=== PATIENT | male | born 1980 | race Caucasian/White ===

== ENCOUNTER 2025-02-20 15:26 | Inpatient (IN) | payer BC ==
[~2025-02-20] VITALS: Ht 170.2 cm; Wt 74.8 kg
[2025-02-20 16:20] LABS: BASOPHILS % 0.1 % (0.0-2.0); EOSINOPHILS % 0.6 % (0.0-5.0); HEMATOCRIT. 51.3 % (42.0-52.0); HEMOGLOBIN. 17.8 g/dL (14.0-18.0); LYMPHOCYTES % 21.4 % (20.0-50.0); MEAN PLATELET VOLUME 8.3 fl (7.4-10.4); MONOCYTES % 3.4 % (2.0-8.0); NEUTROPHILS % 74.5 % (40.0-76.0); PLATELET 265 x1000/uL (130-400); RED BLOOD CELL COUNT 5.45 mill/uL (4.7-6.1); RED CELL DISTRIBUTION WIDTH 13.3 % (11.6-14.6)
[2025-02-20 16:22] LABS: CREATININE 0.9 mg/dL (0.6-1.3)
[2025-02-20 16:23] LABS: UREA NITROGEN BLOOD 20 mg/dL (9-23)
[2025-02-20 16:24] LABS: ASPARTATE AMINOTRANSFERASE 29 IU/L (<34)
[2025-02-20 16:25] LABS: BILIRUBIN DIRECT 0.2 mg/dL (<=3.0); BILIRUBIN TOTAL 0.6 mg/dL (0.1-1.0); PROTEIN TOTAL 7.2 g/dL (6.0-8.3)
[2025-02-20 16:29] LABS: INR 1.0
[2025-02-20] MEDS ORDERED: SODIUM CHLORIDE 0.9% 1,000 ML IV ONE (16:45)
[2025-02-20 16:49] LABS: ETHANOL BLOOD 613 mg/dL (<10)
[2025-02-20] MEDS ORDERED: IPRATROPIUM/ALBUTEROL 0.5-3(2.5)MG/3ML NEB HHN PRN (19:30)
[2025-02-20] MEDS ORDERED: ONDANSETRON HCL 4MG/2ML INJ IV PRN (19:30)
[2025-02-20] MEDS ORDERED: DOCUSATE SODIUM 100MG CAPSULE PO PRN (19:30)
[2025-02-20] MEDS ORDERED: ACETAMINOPHEN 325MG TABLET PO PRN (19:30)
[2025-02-20] MEDS ORDERED: GUAIFENESIN 200MG/10ML SUGAR FREE UDC PO PRN (19:30)
[2025-02-20 20:42] LABS: CREATININE 0.9 mg/dL (0.6-1.3); UREA NITROGEN BLOOD 21 mg/dL (9-23)
[2025-02-20] MEDS: ATORVASTATIN CALCIUM 40MG TABLET PO SCH (21:00)
[2025-02-20] MEDS: FOLIC ACID 1 MG, THIAMINE HCL 100 MG, MVI, ADULT NO.1 10 ML in DEXTROSE 5% WATER 988.8 ML IV SCH (21:26)
[2025-02-20 21:44] VITALS: BP 126/79; PULSE 104; RESP 18; TEMP 37.3; O2SAT 97
[2025-02-20] MEDS: CHLORDIAZEPOXIDE 25MG CAPSULE PO SCH (22:00)
[2025-02-21] VITALS: BP 145/83; PULSE 102; RESP 18; TEMP 36.8; O2SAT 98
[2025-02-21 00:38] LABS: CREATININE 0.8 mg/dL (0.6-1.3); UREA NITROGEN BLOOD 20 mg/dL (9-23)
[2025-02-21 00:56] LABS: TROPONIN I HIGH SENSITIVITY 26 ng/L (3.0-53)
[2025-02-21 04:00] VITALS: BP 137/96; PULSE 99; RESP 16; TEMP 36.8; O2SAT 96
[2025-02-21 06:27] LABS: BASOPHILS % 0.2 % (0.0-2.0); EOSINOPHILS % 0.8 % (0.0-5.0); HEMATOCRIT. 45.6 % (42.0-52.0); HEMOGLOBIN. 15.7 g/dL (14.0-18.0); LYMPHOCYTES % 19.5 % (20.0-50.0); MEAN PLATELET VOLUME 8.2 fl (7.4-10.4); MONOCYTES % 11.5 % (2.0-8.0); NEUTROPHILS % 68.0 % (40.0-76.0); PLATELET 206 x1000/uL (130-400); RED BLOOD CELL COUNT 4.89 mill/uL (4.7-6.1); RED CELL DISTRIBUTION WIDTH 13.7 % (11.6-14.6)
[2025-02-21] MEDS: SODIUM CHLORIDE 0.9% 1,000 ML IV ONE (06:47)
[2025-02-21 07:00] LABS: CREATININE 0.8 mg/dL (0.6-1.3)
[2025-02-21 07:01] LABS: TRIGLYCERIDE 273 mg/dL (0-150); UREA NITROGEN BLOOD 15 mg/dL (9-23)
[2025-02-21 07:02] LABS: LDL CHOLESTEROL 132 mg/dL (5-100); TROPONIN I HIGH SENSITIVITY 29 ng/L (3.0-53)
[2025-02-21 07:05] LABS: T4 FREE 1.01 ng/dL (0.89-1.76)
[2025-02-21 08:00] VITALS: BP 163/97; PULSE 100; RESP 18; TEMP 36.6; O2SAT 97
[2025-02-21] MEDS ORDERED: DEXTROSE 5% WATER 1,000 ML IV ONE (08:00)
[2025-02-21] MEDS ORDERED: SODIUM CHLORIDE 0.9% 1,000 ML IV SCH (09:30)
[2025-02-21] MEDS: FOLIC ACID 1MG TABLET PO SCH (10:41)
[2025-02-21] MEDS: THIAMINE HCL 100MG TABLET PO SCH (10:41)
[2025-02-21] MEDS: PANTOPRAZOLE SODIUM 40 MG/VIAL IV SCH (10:41)
[2025-02-21 10:47] LABS: PHOSPHORUS 2.6 mg/dL (2.5-4.9)
[2025-02-21] MEDS: CLONIDINE 0.1MG TABLET PO PRN (10:56)
[2025-02-21 12:00] VITALS: BP 158/95; PULSE 90; RESP 18; TEMP 36.4; O2SAT 97
[2025-02-21 14:59] LABS: BG BASE EXCESS -5.0 mmol/L (-2.0-3.0); BG CARBOXYHEMOGLOBIN 0.7 % (0.5-1.5); BG DEOXYHEMOGLOBIN 4.7 % (0.0-5.0); BG FRACTION INSPIRED OXYGEN 21; BG HCO3 ACT 19.3 mmol/L (21.0-28.0); BG METHEMOGLOBIN 0.3 % (0.5-1.5); BG OXYGEN SATURATION 95.3 % (94.0-98.0); BG OXYHEMOGLOBIN 94.3 % (94.0-98.0); BG PCO2 34.3 mmHg (35.0-48.0); BG PH 7.367 (7.350-7.450); BG PO2 82.2 mmHg (83.0-108.0); BG TOTAL HEMOGLOBIN 17.6 g/dL (13.5-17.5); BG VENT MODE ROOM AIR
[2025-02-21] MEDS ORDERED: THIA100T72 PO (15:21)
[2025-02-21] MEDS ORDERED: PANT40TA51 PO (15:21)
[2025-02-21] MEDS ORDERED: CHLO25CA10 PO (15:21)
[2025-02-21] MEDS ORDERED: FOLI-43 PO (15:21)
[2025-02-21] MEDS ORDERED: MULT-1116 MT (15:21)
[2025-02-21 15:57] VITALS: BP 153/108; PULSE 98; TEMP 97.5; O2SAT 97
== END 2025-02-21 16:33 | disposition home or self-care (01) | DRG 640 ==
LOC: EDBD 15:26 → ER 15:26 → EDBEDREQSVC 19:29 → EDBEDREQ 19:29 → EDBEDREQTM 19:29 → ENRESERV 20:14 → 5WST 20:52
PROVIDERS: ADMIT Hospitalist; ATTEND Hospitalist
DX: E87.0 Hyperosmolality and hypernatremia (principal); G92.8 Other toxic encephalopathy; E87.20 Acidosis, unspecified; F10.129 Alcohol abuse with intoxication, unspecified; E78.5 Hyperlipidemia, unspecified; E83.51 Hypocalcemia; Y90.9 Presence of alcohol in blood, level not specified; I10 Essential (primary) hypertension; R56.9 Unspecified convulsions; F41.9 Anxiety disorder, unspecified
CPT/HCPCS: 36415; 36600; 71045; 80048; 80061; 80076; 80320; 82306; 82375; 82550; 82805; 82962; 83735; 83930; 84100; 84439; 84443; 84484; 85025; 86850; 86900; 93005; 93970; 97161; 97165; 99285; A4606; J2470; J3411; J3490; J7030; J7070; G0480